=== PATIENT | male | born 1960 | race Caucasian/White ===

== ENCOUNTER 2018-08-04 10:09 | Day surgery (SDC) | payer BC ==
[2018-08-03 11:34] VITALS: BMI 24.4
[2018-08-04 10:32] LABS: #Basophils 0.1 thou/uL (0.0-0.2); #Eosinphils 0.2 thou/uL (0.0-0.7); #Lymphocytes 1.7 thou/uL (1.20-3.40); #Monocytes 0.4 thou/uL (0.11-0.59); %Basophils 1.4 % (0.0-1.0); %Eosinophils 3.1 % (0.0-10.0); %Monocytes 7.6 % (0.0-10.0); Hemoglobin 14.7 g/dL (14.0-18.0); Mean Corpuscular HGB CONC 31.7 g/dL (32.0-36.0); Mean Platelet Volume 7.1 fL (7.4-10.4); Platelet Count 327 thou/uL (130-400); RBC Distribution Width 12.2 % (11.5-14.5); Red Blood Cell (RBC) Count 4.73 mill/uL (4.70-6.10); White Blood Cell (WBC) Count 5.3 thou/uL (4.8-10.8)
[2018-08-04] MEDS ORDERED: Midazolam HCl 2 mg/2 ml Vial ONE ×2 (12:49→13:09)
[2018-08-04] MEDS ORDERED: Bupivacaine PF 0.5% 30 ML VIAL ONE (13:04)
[2018-08-04] MEDS ORDERED: Bacitracin Zinc Ointment 30 gm TUBE ONE (13:04)
[2018-08-04] MEDS ORDERED: Fentanyl 100 MCG/2 ML VIAL ONE ×2 (13:09)
[2018-08-04] MEDS ORDERED: Betamet Acet/Betamet Na Ph 30 MG/5 ML VIAL ONE (13:52)
[2018-08-04] MEDS ORDERED: PROPOFOL 200 MG/20 ML VIAL ONE (14:54)
[2018-08-04] MEDS ORDERED: Ondansetron PF 4 MG/2 ML Vial ONE (14:54)
[2018-08-04] MEDS ORDERED: Lidocaine 1% PF 5 ML VIAL ONE (14:54)
[2018-08-04] MEDS ORDERED: ePHEDrine 50 MG/ML VIAL ONE (14:54)
[2018-08-04] MEDS ORDERED: Ketorolac Tromethamine 30 MG/ML VIAL ONE (16:34)
--- NOTE | 2018-08-05 10:30 | OP ---
DATE OF PROCEDURE: 08/04/2018 PREOPERATIVE DIAGNOSES: 1. Right small finger severe Dupuytren's cord contracture. 2. Right ring finger sever Dupuytren's cord contracture. POSTOPERATIVE DIAGNOSES: 1. Right small finger severe Dupuytren's cord contracture. 2. Right ring finger sever Dupuytren's cord contracture. 3. Small Dupuytren's cord going to the A1 elizabeth of the middle finger as well. PROCEDURE PERFORMED: 1. Subtotal palmar fasciectomy, ring finger and small finger. 2. Small finger and ring finger digital nerve neuroplasty. SPECIMENS: Cord 7 cm long to small finger and ring finger, harvested mass sent as specimen. TOURNIQUET TIME: 93 minutes. FINDINGS: Severe distortion of the neurovascular bundle to the midline superficial. DESCRIPTION OF PROCEDURE: After successful general endotracheal anesthesia, the limb was prepped and draped and the patient had severe Dupuytren's disease and had been counseled to include the fact that his mother had lysis with injection, but did not have the severe 2-3 digit involvement the patient had. He could not passively extend the small finger proximal phalanx beyond -40 degrees even in sleep and he had a 10-degree contracture at the MP joint of the ring finger. We then outlined a zigzag incision, inflated the tourniquet and after exsanguination of the limb to 250 mmHg pressure, then used this zigzag incision beginning 5 mm distal to the proximal phalangeal joint in a Antonella type fashion over back to the transcarpal ligament. We identified the transcarpal ligament proximally and as far proximal as possible, identified the digital nerve. First, we harvested the 4th web space. We visualized, completed the 1st webspace digital nerve complex including the bifurcation towards the long finger and the one towards the ring finger. The patient had the neurovascular bundle completely traced despite the pearly white thickened area, 1st on the radial side a small finger to clearly 5-6 mm distal to the insertion of the sheath at the A3 elizabeth, then we were able to begin just proximal to the MP joint where we found a thick small finger neurovascular bundle, dissected this free as well to the same point, but on the ulnar side. Because the patient's cord also now extended towards the ring finger, we did the same thing, neuroplasty of the ring finger, digital nerve on both sides, moved the cord that spread to the base of the proximal phalanx palmarly and also towards the ring finger A1 elizabeth. This cord was lifted up after protecting the digital nerves and visualized them specifically as well. We then en divina removed the cord completely in all sites, sent it to the lab for specimen identification, released the tourniquet and was able to achieve hemostasis, but initially, for approximately 30 to 40 seconds there was a white finger as the small finger did not return until we placed normal saline on it. Closure was accomplished with interrupted 4-0 nylon simple pattern. We had given him 250 mL of 0.5% Marcaine for anesthesia before and gave another 15 without complications. Bulky dressing was applied. Allowed the patient to move and ensure when the patient had recovered that he did have straight digit capability at the PIP joint postop. Job ID: [id number]
== END 2018-08-04 18:02 | disposition home or self-care (01) ==
LOC: SDC 10:09
PROVIDERS: ATTEND Orthopaedic Surgery Hand Surgery
PROC: 0JNJ0ZZ Release Right Hand Subcutaneous Tissue and Fascia, Open Approach (ICD-10-PCS; principal; 2018-08-04)
PROC: 01N40ZZ Release Ulnar Nerve, Open Approach (ICD-10-PCS; principal; 2018-08-04)
DX: M72.0 Palmar fascial fibromatosis [Dupuytren] (principal); G47.33 Obstructive sleep apnea (adult) (pediatric); Z79.899 Other long term (current) drug therapy; Z98.890 Other specified postprocedural states
CPT/HCPCS: 36415; 85025; 85652; 88304; J0702; J1885; J2001; J2250; J2405; J2704; J3010; J3490; S0020

== ENCOUNTER 2021-06-11 14:16 | Outpatient (CLI) | payer OTHER | END 2021-06-11 14:17 | disposition home or self-care (01) | LOC: BICRAD 14:16 | PROVIDERS: ATTEND Physician Assistant | DX: S69.91XA Unspecified injury of right wrist, hand and finger(s), initial encounter (principal) ==